=== PATIENT | female | born 1950 | race Caucasian/White ===

== ENCOUNTER 2017-08-03 12:45 | Emergency (ER) | payer BC ==
[2017-08-03 12:59] VITALS: BP 152/81
[2017-08-03] MEDS ORDERED: Ondansetron 4 MG/2 ML SDV IVPUSH ONE (13:42)
[2017-08-03] MEDS ORDERED: Sodium Chloride 0.9% 10 ML Syringe FLUSH PRN ×2 (13:43→15:56)
--- NOTE | 2017-08-03 13:46 | EDM.PDOC ---
ED HPI GENERAL MEDICAL PROBLEM - General Chief Complaint: Gastrointestinal Problem Stated Complaint: RECTAL/BOWEL ISSUES Time Seen by Provider: 08/03/17 13:32 Source of Information: Reports: Patient History Limitations: Reports: No Limitations - History of Present Illness INITIAL COMMENTS - FREE TEXT/NARRATIVE: Patient is a 66 year old female who presents to the E.D. Complaining of blood clots within her stool and abdominal pain. States she had eaten supper [place] Evening. Awoke to severe abdominal cramps and nausea lasting for approx 4 hrs. States symptoms have been intermittent since. Has noted blood and mucous with wiping after having a BM. States at times she has had a few drops of blood in the toilet as well. Pain has been mild to moderate intensity. She questions if she had food poisoning but notes nobody else go sick after eating the same food (lobster bisque soup/you sandwhich). She has had a poor appetite. Nausea persist but has decreased. Pain is located more to the left lower quadrant. She has no history of diverticuli. Last colonscopy was 2 years ago with polyp removed. 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) History: Reports: Thyroid - Past Surgical History HEENT Surgical History: Reports: Adenoidectomy, Tonsillectomy Endocrine Surgical History: Reports: Parathyroidectomy Musculoskeletal Surgical History: Reports: Shoulder Replacement, Other (See Below) Other Musculoskeletal Surgeries/Procedures:: ACL repair Social & Family History - Tobacco Use Smoking Status *Q: Never Smoker Second Hand Smoke Exposure: No - Caffeine Use Caffeine Use: Reports: Coffee - Recreational Drug Use Recreational Drug Use: No ED ROS GENERAL - Review of Systems Review Of Systems: See Below Constitutional: Reports: Fatigue, Decreased Appetite. Denies: Fever, Chills, Malaise, Weakness HEENT: Reports: No Symptoms Respiratory: Reports: No Symptoms Cardiovascular: Reports: No Symptoms GI/Abdominal: Reports: Abdominal Pain (Left lower quadrant), Bloody Stool, Diarrhea, Decreased Appetite, Hematochezia, Nausea. Denies: Black Stool, Constipation, Flatus, Hematemesis, Melena, Vomiting : Denies: Dysuria, Flank Pain, Frequency, Hematuria, Urgency, Urinary Retention Musculoskeletal: Reports: No Symptoms (None stated) ED EXAM, GI/ABD - Physical Exam Exam: See Below Exam Limited By: No Limitations General Appearance: Alert, WD/WN, No Apparent Distress Ears: Hearing Grossly Normal Nose: Normal Inspection Throat/Mouth: Normal Inspection, Normal Oropharynx, Normal Voice, No Airway Compromise Neck: Normal Inspection, Supple Respiratory/Chest: No Respiratory Distress, Lungs Clear, Normal Breath Sounds, No Accessory Muscle Use Cardiovascular: Normal Peripheral Pulses, Regular Rate, Rhythm GI/Abdominal Exam: Normal Bowel Sounds, Soft, No Organomegaly, No Distention, Tender (Left lower quadrant mild in nature) Rectal (Female) Exam: Normal Rectal Tone, Heme + Stool. No: Black Stool, Bloody Stool, Heme - Stool, Hemorrhoids, Perirectal Abscess, Tenderness Back Exam: Normal Inspection. No: CVA Tenderness (L), CVA Tenderness (R) Extremities: Normal Inspection Neurological: Alert, Oriented, CN II-XII Intact, Normal Cognition, No Motor/ Sensory Deficits Psychiatric: Normal Affect, Normal Mood Skin Exam: Warm, Dry, Intact, Normal Color Course - Vital Signs Last Recorded V/S: Last Vital Signs Temp 97 F 08/03/17 12:57 Pulse 75 08/03/17 12:57 Resp 19 08/03/17 12:57 BP 152/81 H 08/03/17 12:57 Pulse Ox 96 08/03/17 12:57 - Orders/Labs/Meds Labs: Laboratory Tests 08/03/17 08/03/17 08/03/17 Range/Units 14:00 14:05 14:05 WBC 9.48 (3.98-10.04) K/mm3 RBC 4.87 (3.98-5.22) M/mm3 Hgb 13.8 (11.2-15.7) gm/L Hct 41.2 (34.1-44.9) % MCV 84.6 (79.4-94.8) fl MCH 28.3 (25.6-32.2) pg MCHC 33.5 (32.2-35.5) g/dl RDW Std Deviation 40.9 (36.4-46.3) fL Plt Count 302 (182-369) K/mm3 MPV 9.9 (9.4-12.3) fl Neut % (Auto) 63.2 (34.0-71.1) % Lymph % (Auto) 25.1 (19.3-51.7) % [place] % (Auto) 9.3 (4.7-12.5) % Eos % (Auto) 2.1 (0.7-5.8) Baso % (Auto) 0.3 (0.1-1.2) % Neut # (Auto) 5.99 (1.56-6.13) K/mm3 Lymph # (Auto) 2.38 (1.18-3.74) K/mm3 [place] # (Auto) 0.88 H (0.24-0.36) K/mm3 Eos # (Auto) 0.20 (0.04-0.36) K/mm3 Baso # (Auto) 0.03 (0.01-0.08) K/mm3 Sodium 141 (136-145) mEq/L Potassium 3.5 (3.5-5.1) mEq/L Chloride 103 (98-107) mEq/L Carbon Dioxide 31 (21-32) mEq/L Anion Gap 10.5 (5-15) BUN 11 (7-18) mg/dL Creatinine 0.8 (0.55-1.02) mg/dL Est Cr Clr Drug Dosing 58.77 mL/min Estimated GFR (MDRD) > 60 (>60) mL/min BUN/Creatinine Ratio 13.8 L (14-18) Glucose 90 (80-115) mg/dL Calcium 9.5 (8.5-10.1) mg/dL Total Bilirubin 0.6 (0.2-1.0) mg/dL AST 33 (15-37) U/L ALT 55 (14-59) U/L Alkaline Phosphatase 119 H (46-116) U/L C-Reactive Protein 1.7 H* (<1.0) mg/dL Total Protein 7.9 (6.4-8.2) g/dl Albumin 4.0 (3.4-5.0) g/dl Globulin 3.9 gm/dL Albumin/Globulin Ratio 1.0 (1-2) Urine Color Light yellow (Yellow) Urine Appearance Clear (Clear) Urine pH 7.0 (5.0-8.0) Ur Specific [place] 1.015 (1.005-1.030) Urine Protein Negative (Negative) Urine Glucose (UA) Negative (Negative) Urine Ketones Negative (Negative) Urine Occult Blood 1+ H (Negative) Urine Nitrite Negative (Negative) Urine Bilirubin Negative (Negative) Urine Urobilinogen 0.2 (0.2-1.0) Ur Leukocyte Esterase Negative (Negative) Urine RBC 0-5 (0-5) /hpf Urine WBC 0-5 (0-5) /hpf Ur Epithelial Cells 0-5 (0-5) /hpf Urine Bacteria Occasional (FEW) /hpf Urine Mucus Not seen (FEW) /hpf Meds: Medications Discontinued Medications Generic Name Dose Route Start Last Admin Trade Name Freq PRN Reason Stop Dose Admin Diatrizoate Meglum/Diatrizoate Sod 90 ml 08/03/17 15:56 08/03/17 16:42 Gastrografin 37% PO 08/03/17 15:57 90 ml ONETIME ONE Administration Iopamidol 125 ml 08/03/17 15:56 08/03/17 16:42 Isovue-300 (61%) IVPUSH 08/03/17 15:57 125 ml ONETIME ONE Administration Ondansetron HCl 4 mg 08/03/17 13:42 08/03/17 14:07 Zofran IVPUSH 08/03/17 13:43 4 mg ONETIME ONE Administration Sodium Chloride 10 ml 08/03/17 13:43 08/03/17 14:07 Saline Flush FLUSH 10 ml ASDIRECTED PRN Administration Keep Vein Open Sodium Chloride 10 ml 08/03/17 15:56 08/03/17 16:43 Saline Flush FLUSH 10 ml ONETIME PRN Administration IV FLUSH - Re-Assessments/Exams Free Text/Narrative Re-Assessment/Exam: IV will be established Zofran 4 mg IVP. Initial labs and studies include a CBC, chem 14, UA, and 2 view of the abdomen. Patient will be placed in a gown and perform a rectal exam checking Hemoccult and for external/internal hemorrhoids. Patient has had no bowel movement today. But if she does will test for stool blood wbc's, stool culture, and c-diff. Labs reviewed: CBC and chem 14 was essentially normal. CRP 1.7. UA, 1+, no additional concerning findings. Fecal Hemocult test was postive for blood. 08/03/17 15:[address] with oral and IV contrast to rule out diverticulitis. 08/03/17 17:35 CT the abdomen and pelvis impression: Incidental findings. Nothing acute is identified on CT study of the abdomen and pelvis. Stool studies have been obtained. Patient has not had a bowel movement. Will discharge patient home with instructions as . Symptoms have resolved with taking the Zofran. Departure - Departure Time of Disposition: 17:43 Disposition: Home, Self-Care 01 Condition: Good Clinical Impression: Abdominal pain, Hematochezia - Discharge Information Instructions: Abdominal Pain, Adult, [id number] Referrals: Nakita Ballesteros MD [Primary Care Provider] - Forms: ED Department Discharge Additional Instructions: CT of the abdomen and pelvis did not reveal any concerning finding. Unclear etiology of blood within stool. Stool studies have been ordered on a outpatient basis. Please bring a stool sample to the lab to be tested. See your PCP 48 hours later for results. Suggest eating a bland diet. Push the fluids. Return to the E.D. for any new or worsening symptoms.
--- NOTE | 2017-08-03 14:42 | CR ---
Abdomen: Supine and upright views of the abdomen were obtained. Bowel gas pattern appears within normal limits. Calcification is seen most likely representing nonobstructing stone within the left kidney. Mild degenerative spurring is noted within the spine. No discrete soft tissue abnormality is seen. No free air is seen. Impression: 1. Incidental findings as noted above. Diagnostic code #2
[2017-08-03] MEDS ORDERED: Iopamidol 612 MG/ML 150 ML Bottle IVPUSH ONE (15:56)
[2017-08-03] MEDS ORDERED: Diatrizoate Meglumine/Diatrizoate Sodium 37% 120 ML Bottle PO ONE (15:56)
--- NOTE | 2017-08-03 17:13 | CT ---
CT abdomen and pelvis Technique: Multiple axial sections were obtained from above the dome of the diaphragm inferiorly through the pubic symphysis. Intravenous and oral contrast was utilized. Comparison: Previous abdominal and pelvic CT exam dated 12/27/10. Findings: Visualized lung bases shows nothing acute. Liver shows no focal parenchymal abnormality. Spleen appears within normal limits. Kidneys show contrast-enhancement without hydronephrosis or mass. Gallbladder contains no calcified gallstones. Pancreas is within normal limits. Aorta shows no aneurysmal dilatation. Appendix is seen within the upper right abdomen with no findings of appendicitis. Aorta shows no aneurysmal dilatation. No retroperitoneal adenopathy is seen. Diverticuli are seen near the descending and sigmoid junctions as well as within the sigmoid colon. No inflammatory change of diverticulitis is seen. No pelvic mass or adenopathy is noted. Previous hysterectomy is incidentally noted. Delayed images shows contrast within distal ureters and within the bladder. Bone window settings were reviewed showing mild degenerative change which is most severe at L5-S1 with disc space narrowing and vacuum phenomena. Impression: 1. Incidental findings. Nothing acute is identified on CT study of the abdomen and pelvis. Diagnostic code #2
== END 2017-08-03 18:13 | disposition home or self-care (01) ==
LOC: JD.ED 12:45
DX: K92.1 Melena (principal); E78.00 Pure hypercholesterolemia, unspecified; K21.9 Gastro-esophageal reflux disease without esophagitis; Z98.890 Other specified postprocedural states; Z96.619 Presence of unspecified artificial shoulder joint; Z85.850 Personal history of malignant neoplasm of thyroid; Z79.899 Other long term (current) drug therapy; Z88.1 Allergy status to other antibiotic agents
CPT/HCPCS: 36415; 74020; 74177; 80053; 81001; 82270; 85025; 86140; 96374; 99285; J2405; J7050; Q9963; Q9967; 99284